=== PATIENT | male | born 1985 | race Caucasian/White ===

== ENCOUNTER 2019-08-27 16:49 | Outpatient (REF) | payer OTHER, SELFPAY ==
[2019-08-27 21:20] LABS: Calculated LDL 123 mg/dL (<100); Cholesterol 220 mg/dL (<200); HDL Cholesterol 82 mg/dL (40-60); Triglyceride 78 mg/dL (<150)
[2019-08-27 21:23] LABS: Hemoglobin A1C 5.2 % (3.8-5.6)
== END 2019-08-27 17:09 ==
LOC: NCHCN 16:49
PROVIDERS: PCP Family Medicine; Visit Provider Family Medicine
DX: Z00.00 Encounter for general adult medical examination without abnormal findings (principal); Z82.49 Family history of ischemic heart disease and other diseases of the circulatory system; Z13.1 Encounter for screening for diabetes mellitus; Z13.220 Encounter for screening for lipoid disorders
CPT/HCPCS: 80061; 83036

== ENCOUNTER 2021-03-07 18:25 | Outpatient (REF) | payer OTHER, SELFPAY ==
[2021-03-07 21:57] LABS: TSH (W/Ref FT4) 0.74 uIU/mL (0.36-3.74)
== END 2021-03-07 18:26 | disposition home or self-care (01) ==
LOC: NCHCN 18:25
PROVIDERS: PCP Family Medicine; Visit Provider Family Medicine
DX: R63.5 Abnormal weight gain (principal); Z86.39 Personal history of other endocrine, nutritional and metabolic disease
CPT/HCPCS: 84443

== ENCOUNTER 2024-10-20 20:14 | Outpatient (REF) | payer BC, SELFPAY ==
[2024-10-20 21:59] LABS: Cholesterol 210 mg/dL (<200); HDL Cholesterol 63 mg/dL (>or=40); Triglyceride 501 mg/dL (<150)
[2024-10-21 18:40] LABS: LDL CHOLESTEROL 101 mg/dL (<100)
== END 2024-10-20 20:15 | disposition home or self-care (01) ==
LOC: NCHCN 20:14
PROVIDERS: PCP Family Medicine; Visit Provider Family Medicine
DX: Z13.220 Encounter for screening for lipoid disorders (principal)
CPT/HCPCS: 80061; 83721